=== PATIENT | male | born 1955 | race Caucasian/White ===

== ENCOUNTER 2017-02-24 11:13 | Emergency (ER) | payer MEDICARE ==
--- NOTE | 2017-02-24 13:32 | RADIOLOGY REPORT (SQ) ---
EXAM DESCRIPTION: KNEE LEFT 4 VIEW COMPLETED DATE/TIME: 02/24/2017 1:16 pm REASON FOR STUDY: left knee injury, weak COMPARISON: None. NUMBER OF VIEWS: Four views left knee. LIMITATIONS: None. FINDINGS: There is no acute or significant bone, joint or soft tissue abnormality. OTHER: No other significant finding. IMPRESSION: NORMAL STUDY. TECHNICAL DOCUMENTATION: JOB ID: [id number]
--- NOTE | 2017-02-24 13:41 | ER Document Report ---
ED Fall - General Chief Complaint: Fall Injury Stated Complaint: FALL/KNEE PAIN Time Seen by Provider: 02/24/17 12:39 Mode of Arrival: Wheelchair Information source: Patient Notes: Pt is a 62 year old male who presents to the ER today for left knee pain after slipping yesterday on some ice in his back yard and falling, bending the left knee underneath him during the fall. He states it's hurting mostly in the front of his knee and that it's weak and pop when he tries to walk. He denies bruising , numbness or tingling. He denies hitting his head or loc. TRAVEL OUTSIDE OF THE [place] IN LAST 30 DAYS: No - Related data Allergies/Adverse Reactions: shellfish derived Allergy (Verified 02/24/17 11:16) Past Medical History - General Information source: Patient - Social History Smoking Status: Never Smoker Chew tobacco use (# tins/day): No Frequency of alcohol use: None Drug Abuse: None Family History: Reviewed & Not Pertinent Patient has suicidal ideation: No Patient has homicidal ideation: No - Past Medical History Cardiac Medical History: Reports: Hx Hypertension Renal/ Medical History: Denies: Hx Peritoneal Dialysis Past Surgical History: Reports: Hx Open Heart Surgery Review of Systems - Review of Systems Constitutional: No symptoms reported EENT: No symptoms reported Cardiovascular: No symptoms reported Respiratory: No symptoms reported Gastrointestinal: No symptoms reported Genitourinary: No symptoms reported Male Genitourinary: No symptoms reported Musculoskeletal: See HPI Skin: No symptoms reported Hematologic/Lymphatic: No symptoms reported Neurological/Psychological: No symptoms reported Physical Exam - Vital signs Vitals: Temp Pulse Resp BP Pulse Ox 98.8 F 70 16 157/79 H 96 02/24/17 11:33 02/24/17 11:33 02/24/17 11:33 02/24/17 11:33 02/24/17 11:33 - Notes Notes: PHYSICAL EXAMINATION: GENERAL: well appearing, in no acute distress. HEAD: Atraumatic, normocephalic. EYES: Pupils equal round and reactive to light, extraocular movements intact, sclera anicteric, conjunctiva are normal. NECK: Normal range of motion, supple without lymphadenopathy LUNGS: CTAB and equal. No wheezes rales or rhonchi. HEART: regular rate and rhythm without murmurs ABDOMEN: Soft, no tenderness. No guarding, no rebound BACK: no vertebral tenderness, normal ROM GI/: no CVA tenderness EXTREMITIES: limited range of motion of the left knee, tender to anterior/ medial left knee, pain with varus stressing and anterior drawer testing, no pitting edema. No cyanosis. NEUROLOGICAL:cranial nerves grossly intact, normal sensation/motor exam PSYCH: Normal mood, normal affect. SKIN: Warm, Dry, normal turgor, no rashes or lesions noted Course - Re-evaluation Re-evalutation: 02/25/17 19:29 x ray negative for any acute pathology. 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 likely that he may have an internal knee injury such as meniscal tear/ACL/ PCL tear or sprain. - Vital Signs Vital signs: Temp Pulse Resp BP Pulse Ox 98.7 F 75 16 155/75 H 100 02/24/17 14:08 02/24/17 14:08 02/24/17 14:08 02/24/17 14:08 02/24/17 14:08 Discharge - Discharge Clinical Impression: Left knee injury Qualifiers: Encounter type: initial encounter Qualified Code(s): S89.92XA - Unspecified injury of left lower leg, initial encounter Condition: Stable Disposition: HOME, SELF-CARE Additional Instructions: Please return with worsening symptoms. Follow up with orthopedic doctor I'm giving you information for as soon as possible. Referrals: MARGARET MATHIS MD [ACTIVE STAFF] - Follow up as needed
[2017-02-24 14:09] VITALS: BP 155/75
== END 2017-02-24 14:10 | disposition home or self-care (01) ==
LOC: ER 11:13
DX: S89.92XA Unspecified injury of left lower leg, initial encounter (principal); M25.562 Pain in left knee; W00.0XXA Fall on same level due to ice and snow, initial encounter; Z91.013 Allergy to seafood; I10 Essential (primary) hypertension
CPT/HCPCS: 99283; 73562; L1830